=== PATIENT | male | born 1935 | race Caucasian/White ===

== ENCOUNTER 2021-01-06 06:51 | Inpatient (IN) | payer MEDICARE, BC ==
[2021-01-06] MEDS ORDERED: SODIUM CHLORIDE 0.9% 500 ML 500 ML IV ONE (07:15)
--- NOTE | 2021-01-06 07:42 | ED ---
General Adult HPI - General Chief complaint: Altered Mental Status Stated complaint: altered Time Seen by Provider: 01/06/21 06:59 Source: patient, RN notes reviewed, old records reviewed Mode of arrival: ambulatory Limitations: no limitations - History of Present Illness Initial comments: 85-year-old male presenting for evaluation of confusion, hallucination. Patient had some moderate confusion yesterday and developed hallucinations overnight. He called 911 and was seeing things that were not there. He was brought in with his daughter this morning. His had episodes similar to this in the past but not quite as severe. He is recently treated for possible infected kidney stone and is currently on Keflex 500 mg 3 times daily. There's been no reported fever. Appetite has been maintained. No vomiting. No focal numbness or weakness. No headache. - Related Data Home Medications Medication Instructions Recorded Confirmed Aspirin 81 mg PO HS 01/06/21 01/06/21 Cephalexin [Keflex] 500 mg PO Q8HR 01/06/21 01/06/21 Docusate [Colace] 100 mg PO BID 01/06/21 01/06/21 Metoprolol Tartrate 25 mg PO HS 01/06/21 01/06/21 Multivitamins, Thera [Multivitamin 1 tab PO DAILY 01/06/21 01/06/21 (formulary)] Oxybutynin ER [Ditropan Xl] 10 mg PO HS 01/06/21 01/06/21 Pantoprazole Sodium 40 mg PO DAILY 01/06/21 01/06/21 Tamsulosin HCl [Flomax] 0.4 mg PO HS 01/06/21 01/06/21 amLODIPine [Norvasc] 5 mg PO DAILY 01/06/21 01/06/21 Allergies Allergy/AdvReac Type Severity Reaction Status Date / Time No Known Allergies Allergy Verified 01/06/21 08:35 Review of Systems ROS Statement: Those systems with pertinent positive or pertinent negative responses have been documented in the HPI. ROS Other: All systems not noted in ROS Statement are negative. Past Medical History Past Medical History: Hyperlipidemia, Hypertension, Myocardial Infarction ([place]), Renal Disease History of Any Multi-Drug Resistant Organisms: None Reported Past Surgical History: Heart Catheterization With Stent Past Psychological History: No Psychological Hx Reported Smoking Status: Never smoker Past Alcohol Use History: None Reported Past Drug Use History: None Reported General Exam Limitations: no limitations General appearance: alert, in no apparent distress Head exam: Present: atraumatic, normocephalic Eye exam: Present: normal appearance, PERRL ENT exam: Present: mucous membranes dry Neck exam: Present: normal inspection. Absent: tenderness, meningismus Respiratory exam: Present: rales. Absent: respiratory distress, wheezes Cardiovascular Exam: Present: regular rate, normal rhythm GI/Abdominal exam: Present: soft. Absent: distended, tenderness Extremities exam: Present: normal inspection, normal capillary refill. Absent: pedal edema Neurological exam: Present: alert, CN II-XII intact. Absent: motor sensory deficit Psychiatric exam: Present: normal affect, normal mood Skin exam: Present: warm, dry, intact. Absent: cyanosis, diaphoretic Course Vital Signs 01/06/21 01/06/21 06:54 08:25 Temperature 97.9 F Pulse Rate 93 88 Respiratory 18 18 Rate Blood Pressure 162/84 156/90 O2 Sat by Pulse 94 L 98 Oximetry EKG Findings - EKG Comments: EKG Findings:: Sinus rhythm with PVC LVH no ST segment elevation rate of 81, OR interval 164, QRS duration 88, QTC 418 Medical Decision Making - Medical Decision Making 85-year-old male presenting with confusion, hallucination. He has a nonfocal neurologic exam, stable vitals. He was recently diagnosed with kidney stone he had been started on Keflex approximately one week ago. Patient is actively hallucinating. He's evaluated for these changes he has no pain. No fever. Chest x-ray showing concern for either fluid overload or Covid pneumonia. His covert testing is negative he is not hypoxic. CT brain is ordered which is negative for acute hemorrhage or any acute findings. I did repeat imaging of his abdomen pelvis which does show an obstructing 5.4 mm stone in the proximal left ureter with hydronephrosis. He has some blood in his urine as well as blood cell counts, no bacteria present currently. Urine culture is obtained. Blood cultures are obtained. He started on IV fluids and IV antibiotics. I did discuss case with Dr. Pelayo, will evaluate this patient in consultation. He will be kept nothing by mouth. He will be admitted to Dr. Villalba who is aware of the patient. - Lab Data Result diagrams: 01/06/21 07:33 01/06/21 07:33 Lab Results 01/06/21 01/06/2101/06/21 Range/Units 07:24 07:33 07:33 WBC 7.7 (3.8-10.6) k/uL RBC 4.20 L (4.30-5.90) m/uL Hgb 12.8 L (13.0-17.5) gm/dL Hct 38.5 L (39.0-53.0) % MCV 91.7 (80.0-100.0) fL MCH 30.5 (25.0-35.0) pg MCHC 33.3 (31.0-37.0) g/dL RDW 13.1 (11.5-15.5) % Plt Count 211 (150-450) k/uL MPV 7.4 Neutrophils % 74 % Lymphocytes % 16 % Monocytes % 7 % Eosinophils % 0 % Basophils % 0 % Neutrophils # 5.7 (1.3-7.7) k/uL Lymphocytes # 1.3 (1.0-4.8) k/uL Monocytes # 0.5 (0-1.0) k/uL Eosinophils # 0.0 (0-0.7) k/uL Basophils # 0.0 (0-0.2) k/uL PT 10.6 (9.0-12.0) sec INR 1.0 (<1.2) APTT 22.1 (22.0-30.0) sec Sodium (137-145) mmol/L Potassium (3.5-5.1) mmol/L Chloride (98-107) mmol/L Carbon Dioxide (22-30) mmol/L Anion Gap mmol/L BUN (9-20) mg/dL Creatinine (0.66-1.25) mg/dL Est GFR (CKD-EPI)AfAm (>60 ml/min/1.73 sqM) Est GFR (CKD-EPI)NonAf (>60 ml/min/1.73 sqM) Glucose (74-99) mg/dL Plasma Lactic Acid [place] (0.7-2.0) mmol/L Calcium (8.4-10.2) mg/dL Magnesium (1.6-2.3) mg/dL Total Bilirubin (0.2-1.3) mg/dL AST (17-59) U/L ALT (4-49) U/L Alkaline Phosphatase (38-126) U/L Total Protein (6.3-8.2) g/dL Albumin (3.5-5.0) g/dL Urine Color Yellow Urine Appearance Clear (Clear) Urine pH 5.5 (5.0-8.0) Ur Specific [place] 1.012 (1.001-1.035) Urine Protein Negative (Negative) Urine Glucose (UA) Negative (Negative) Urine Ketones Negative (Negative) Urine Blood Large H (Negative) Urine Nitrite Negative (Negative) Urine Bilirubin Negative (Negative) Urine Urobilinogen <2.0 (<2.0) mg/dL Ur Leukocyte Esterase Small H (Negative) Urine RBC 43 H (0-5) /hpf Urine WBC 11 H (0-5) /hpf Urine Mucus Rare H (None) /hpf Coronavirus (PCR) (Not Detectd) 01/06/21 01/06/21 01/06/21 Range/Units 07:33 07:33 08:28 WBC (3.8-10.6) k/uL RBC (4.30-5.90) m/uL Hgb (13.0-17.5) gm/dL Hct (39.0-53.0) % MCV (80.0-100.0) fL MCH (25.0-35.0) pg MCHC (31.0-37.0) g/dL RDW (11.5-15.5) % Plt Count (150-450) k/uL MPV Neutrophils % % Lymphocytes % % Monocytes % % Eosinophils % % Basophils % % Neutrophils # (1.3-7.7) k/uL Lymphocytes # (1.0-4.8) k/uL Monocytes # (0-1.0) k/uL Eosinophils # (0-0.7) k/uL Basophils # (0-0.2) k/uL PT (9.0-12.0) sec INR (<1.2) APTT (22.0-30.0) sec Sodium 137 (137-145) mmol/L Potassium 4.0 (3.5-5.1) mmol/L Chloride 104 (98-107) mmol/L Carbon Dioxide 23 (22-30) mmol/L Anion Gap 10 mmol/L BUN 21 H (9-20) mg/dL Creatinine 1.33 H (0.66-1.25) mg/dL Est GFR (CKD-EPI)AfAm 56 (>60 ml/min/1.73 sqM) Est GFR (CKD-EPI)NonAf 48 (>60 ml/min/1.73 sqM) Glucose 107 H (74-99) mg/dL Plasma Lactic Acid [place] 0.9 (0.7-2.0) mmol/L Calcium 10.1 (8.4-10.2) mg/dL Magnesium 1.4 L (1.6-2.3) mg/dL Total Bilirubin 0.6 (0.2-1.3) mg/dL AST 36 (17-59) U/L ALT 23 (4-49) U/L Alkaline Phosphatase 57 (38-126) U/L Total Protein 7.0 (6.3-8.2) g/dL Albumin 4.0 (3.5-5.0) g/dL Urine Color Urine Appearance (Clear) Urine pH (5.0-8.0) Ur Specific [place] (1.001-1.035) Urine Protein (Negative) Urine Glucose (UA) (Negative) Urine Ketones (Negative) Urine Blood (Negative) Urine Nitrite (Negative) Urine Bilirubin (Negative) Urine Urobilinogen (<2.0) mg/dL Ur Leukocyte Esterase (Negative) Urine RBC (0-5) /hpf Urine WBC (0-5) /hpf Urine Mucus (None) /hpf Coronavirus (PCR) Not Detected (Not Detectd) Disposition Clinical Impression: Delirium due to general medical condition, Metabolic encephalopathy, Hydronephrosis with renal and ureteral calculus obstruction Disposition: ADMITTED IP TO THIS [facility] Condition: Stable Is patient prescribed a controlled substance at d/c from ED?: No Referrals: Jimmy Lu DO [Primary Care Provider] - 1-2 days Decision to Admit Reason: Admit from EC Decision Date: 01/06/21 Decision Time: 10:20
[2021-01-06 07:52] LABS: Basophils % (A) 0 %; Eosinophils % (A) 0 %; HCT 38.5 % (39.0-53.0); HGB 12.8 gm/dL (13.0-17.5); Lymphocytes # (A) 1.3 k/uL (1.0-4.8); Lymphocytes % (A) 16 %; MCH 30.5 pg (25.0-35.0); MCHC 33.3 g/dL (31.0-37.0); MCV 91.7 fL (80.0-100.0); Mean Platelet Volume 7.4; Monocytes # (A) 0.5 k/uL (0-1.0); Monocytes % (A) 7 %; Neutrophils # (A) 5.7 k/uL (1.3-7.7); Neutrophils % (A) 74 %; Platelet Count 211 k/uL (150-450); RDW 13.1 % (11.5-15.5); WBC 7.7 k/uL (3.8-10.6)
--- NOTE | 2021-01-06 08:05 | XR ---
EXAMINATION TYPE: XR chest 2V DATE OF EXAM: 01/06/2021 COMPARISON: 05/25/2013 HISTORY: 85-year-old male confusion, altered mental status TECHNIQUE: AP and lateral views FINDINGS: The heart is borderline enlarged. Mild interstitial densities. Suspect a couple calcified granulomas in the left upper lobe. Narrowing of the subacromial space, right greater than left suggests underlyi ng full-thickness rotator cuff tears. No pleural effusion. IMPRESSION: Mild patchy interstitial changes. Correlate to exclude mild pulmonary vascular congestion versus subt le underlying infiltrates such as with COVID pneumonia.
[2021-01-06 08:13] LABS: Appearance,Urine Clear (Clear); Bilirubin,Urine Negative (Negative); Blood,Urine Large (Negative); Color,Urine Yellow; Glucose,Urine (UA) Negative (Negative); Ketones,Urine Negative (Negative); Leukocyte Esterase,Urine Small (Negative); Mucus,Urine Rare /hpf; Nitrite,Urine Negative (Negative); PH, Urine 5.5 (5.0-8.0); Protein,Urine Negative (Negative); RBC,Urine 43 /hpf (0-5); Specific Gravity,Urine 1.012 (1.001-1.035); Urobilinogen,Urine <2.0 mg/dL (<2.0); WBC,Urine 11 /hpf (0-5)
[2021-01-06 08:36] LABS: Partial Thromboplastin Time 22.1 sec (22.0-30.0); Prothrombin Time 10.6 sec (9.0-12.0)
[2021-01-06 08:41] LABS: Calcium 10.1 mg/dL (8.4-10.2); Magnesium 1.4 mg/dL (1.6-2.3); Total Bilirubin 0.6 mg/dL (0.2-1.3)
--- NOTE | 2021-01-06 09:12 | CT ---
EXAMINATION TYPE: CT brain wo con DATE OF EXAM: 01/06/2021 COMPARISON: 12/02/2012 HISTORY: AMS CT DLP: 1056.[address] of the brain was performed. The ventricles, basal cisterns and sulci overlying the cerebral convexities demonstrate moderate enla rgement. There is no evidence for intracranial hemorrhage or sulcal effacement. There is decreased attenuation about the periventricular white matter and deep white matter of both c erebral hemispheres, compatible with chronic small vessel ischemia. Differential diagnosis does inclu de demyelination. No mass effects are seen.No midline shift. Osseous calvarium is intact. If symptoms persist consider MRI. IMPRESSION: 1. Age related atrophic and chronic small vessel ischemic change without acute intracranial process s een at this time.
--- NOTE | 2021-01-06 09:16 | CT ---
EXAMINATION TYPE: CT abdomen pelvis wo con DATE OF EXAM: 01/06/2021 COMPARISON: 12/03/2012 HISTORY: Renal stones CT DLP: 497.3 mGycm Examination of the solid and hollow viscera is limited given the lack of contrast. FINDINGS: LUNG BASES: No evidence for nodule. No evidence for infiltrate. LIVER/GB: The gallbladder surgically absent. Scattered hepatic calcifications seen. Hypoattenuating l esion left hepatic lobe measuring 1.9 cm. PANCREAS: No pancreatic mass identified. No inflammatory process seen. SPLEEN: No evidence for splenomegaly. No intrasplenic lesions seen. Splenic granulomas. ADRENALS: No adrenal nodules identified. No evidence for thickening. KIDNEYS: Moderate left-sided hydronephrosis secondary to a proximal left ureteral calculus measuring 5.4 mm. No additional calculi seen. Right kidney is unremarkable. There are calculi noted layering de pendently within the urinary bladder measuring up to 1.3 cm. BOWEL: Appendix has a normal appearance. No evidence of bowel obstruction. No inflammatory process. Lymph nodes: No evidence for adenopathy greater than 1 cm. Abdominal aorta: Atheromatous changes seen. No evidence for aneurysm. Genital organs: Multiple prostate calcifications noted as well. Other: No significant abnormality. IMPRESSION: Moderate left-sided hydronephrosis secondary to a proximal left ureteral calculus measuring 5.4 mm.
[2021-01-06] MEDS ORDERED: cefTRIAXone IN SWFI 1,000 MG/10 ML SYRINGE IVP STA (09:25)
[2021-01-06] MEDS ORDERED: NALOXONE 0.4 MG/ML 1 ML VIAL IV PRN (10:16)
--- NOTE | 2021-01-06 10:37 | P.HPIM ---
History of Present Illness This is a pleasant 85 years old male with past medical history of coronary artery disease, hypertension and hyperlipidemia presents with altered mental status He is a patient of Dr. Jimmy reddts his urologist is Dr. Ayala.. Patient was recently diagnosed with kidney stones and he was started on antibiotic Keflex however lately he's been confused and hallucinating I want to see the patient in the emergency room, Patient is fully awake and oriented and he has good attention span he knows he is in the hospital, [facility] he knew the date with the month and year. He couldn't remember the name of the president. However as per daughter at bedside he's been feeling advancing his shoes and he sees appointment who is not there. He denies any chest pain or dyspnea or coughing. No headache or weakness or n umbness. 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 CBC is unremarkable, INR is normal 1.0. Creatinine elevated at 1.3 which is unknown baseline. Liver enzymes not elevated. Urinalysis showing hematuria with small leukocyte esterase. Coronavirus not detected. CT of the abdomen and pelvis: Moderate left-sided hydronephrosis secondary to proximal left ureteral calculus measuring 5.4 mm Of the brain: No acute process. Cerebral atrophy Chest x-ray: Mild patchy interstitial changes. Correlate to exclude mild pulmonary vascular congestion versus subtle underlying infiltrate such as, pneumonia. Review of Systems CONSTITUTIONAL: No fever, no malaise, no fatigue. HEENT: No recent visual problems or hearing problems. Denied any sore throat. CARDIOVASCULAR: No orthopnea, PND, no palpitations, no syncope. PULMONARY: No shortness of breath, no cough, no hemoptysis. GASTROINTESTINAL: No diarrhea, no nausea, no vomiting, no abdominal pain. Normoactive bowel sounds. NEUROLOGICAL: No headaches, no weakness, no numbness. HEMATOLOGICAL: Denies any bleeding or petechiae. GENITOURINARY: Denies any burning micturition, frequency, or urgency. MUSCULOSKELETAL/RHEUMATOLOGICAL: Denies any joint pain, swelling, or any muscle pain. ENDOCRINE: Denies any polyuria or polydipsia. Past Medical History Past Medical History: Hyperlipidemia, Hypertension, Myocardial Infarction ([place]), Renal Disease History of Any Multi-Drug Resistant Organisms: None Reported Past Surgical History: Heart Catheterization With Stent Past Psychological History: No Psychological Hx Reported Smoking Status: Never smoker Past Alcohol Use History: None Reported Past Drug Use History: None Reported Medications and Allergies Home Medications Medication Instructions Recorded Confirmed Type Aspirin 81 mg PO HS 01/06/21 01/06/21 History Cephalexin [Keflex] 500 mg PO Q8HR 01/06/21 01/06/21 History Docusate [Colace] 100 mg PO BID 01/06/21 01/06/21 History Metoprolol Tartrate 25 mg PO HS 01/06/21 01/06/21 History Multivitamins, Thera [Multivitamin 1 tab PO DAILY 01/06/21 01/06/21 History (formulary)] Oxybutynin ER [Ditropan Xl] 10 mg PO HS 01/06/21 01/06/21 History Pantoprazole Sodium 40 mg PO DAILY 01/06/21 01/06/21 History Tamsulosin HCl [Flomax] 0.4 mg PO HS 01/06/21 01/06/21 History amLODIPine [Norvasc] 5 mg PO DAILY 01/06/21 01/06/21 History Allergies Allergy/AdvReac Type Severity Reaction Status Date / Time No Known Allergies Allergy Verified 01/06/21 08:35 Physical Exam Vitals: Vital Signs Temp Pulse Resp BP Pulse Ox 01/06/21 08:25 88 18 156/90 98 01/06/21 06:54 97.9 F 93 18 162/84 94 L Intake and Output 01/05/21 01/06/21 01/06/21 22:59 06:59 14:59 Other: Weight 67.132 kg GENERAL: The patient is alert and oriented x3, not in any acute distress. Well developed, well nourished. HEENT: Pupils are round and equally reacting to light. EOMI. No scleral icterus. No conjunctival pallor. Normocephalic, atraumatic. No pharyngeal erythema. No thyromegaly. CARDIOVASCULAR: S1 and S2 present. No murmurs, rubs, or gallops. PULMONARY: Chest is clear to auscultation, no wheezing or crackles. ABDOMEN: Soft, nontender, nondistended, normoactive bowel sounds. No palpable organomegaly. MUSCULOSKELETAL: No joint swelling or deformity. EXTREMITIES: No cyanosis, clubbing, or pedal edema. NEUROLOGICAL: Gross neurological examination did not reveal any focal deficits. SKIN: No rashes. No petechiae Results CBC & Chem 7: 01/06/21 07:33 01/06/21 07:33 Labs: Abnormal Lab Results - Last 24 Hours (Table) 01/06/21 01/06/21 01/06/21 Range/Units 07:24 07:33 07:33 RBC 4.20 L (4.30-5.90) m/uL Hgb 12.8 L (13.0-17.5) gm/dL Hct 38.5 L (39.0-53.0) % BUN 21 H (9-20) mg/dL Creatinine 1.33 H (0.66-1.25) mg/dL Glucose 107 H (74-99) mg/dL Magnesium 1.4 L (1.6-2.3) mg/dL Urine Blood Large H (Negative) Ur Leukocyte Esterase Small H (Negative) Urine RBC 43 H (0-5) /hpf Urine WBC 11 H (0-5) /hpf Urine Mucus Rare H (None) /hpf Assessment and Plan Assessment: Acute kidney injury secondary to obstructive uropathy Left-sided hydronephrosis secondary to obstructive renal calculus5.4 mm Hematuria secondary to above Metabolic encephalopathy Hypertension Hyperlipidemia Coronary artery disease status post stent placement Plan: This is a pleasant 85 years old male who presents with AMS and AK I and left renal calculus Keep the patient nothing by mouth for possible ureteral stone removal and stent placement by urologist There is no evidence of infection, no fever or leukocytosis Continue with gentle hydration Check procalcitonin Continue with the neuro check Labs and medication were reviewed.. Continue same treatment. Continue with symptomatic treatment. Resume home medication. Monitor lytes and vitals. DVT and GI prophylaxis. Further recommendations depends on the clinical course of the patient DVT prophylaxis: Subcutaneous heparin GI Prophylaxis: Ppi PT/OT: Pending Prognosis is guarded
[2021-01-06] MEDS: HEPARIN SODIUM,PORCINE/PF 5,000 UNIT/0.5 ML SYRINGE SQ SCH ×3 (11:54→22:17)
[2021-01-06] MEDS: SODIUM CHLORIDE 0.9% 1,000 ML IV SCH (11:54)
[2021-01-06] MEDS ORDERED: LACTATED RINGERS 1,000 ML IV ONE (15:43)
--- NOTE | 2021-01-06 16:02 | P.GSCN ---
History of Present Illness Consult date: 01/06/21 Reason for Consult: Left ureteral calculus Requesting physician: Jermaine E Sheet History of present illness: The patient is an 85-year-old white male well known to Dr. Pitts. He was diagnosed with prostate cancer in 2010. He has been managed with watchful waiting. His most recent PSA level was 4.0 in July 2020. He now presents with mental status changes. He was recently diagnosed with kidney stones, and presumably a UTI as he is being treated with Keflex. However, he has been noted to have altered mental status and hallucinations. He does report abdominal pain which is predominantly left-sided. Review of Systems - Constitutional Denies chills, Denies fever - Gastrointestinal Reports abdominal pain, Denies nausea, Denies vomiting - Genitourinary Reports flank pain, Denies dysuria Past Medical History Past Medical History: Hyperlipidemia, Hypertension, Myocardial Infarction ([place]), Renal Disease History of Any Multi-Drug Resistant Organisms: None Reported Past Surgical History: Heart Catheterization With Stent Past Psychological History: No Psychological Hx Reported Smoking Status: Never smoker Past Alcohol Use History: None Reported Past Drug Use History: None Reported Medications and Allergies Home Medications Medication Instructions Recorded Confirmed Type Cephalexin [Keflex] 500 mg PO Q8HR 01/06/21 01/06/21 History Clopidogrel Bisulfate [Plavix] 75 mg PO DAILY 01/06/21 01/06/21 History Docusate [Colace] 100 mg PO BID 01/06/21 01/06/21 History Metoprolol Tartrate 25 mg PO HS 01/06/21 01/06/21 History Multivitamins, Thera [Multivitamin 1 tab PO DAILY 01/06/21 01/06/21 History (formulary)] Oxybutynin ER [Ditropan Xl] 10 mg PO HS 01/06/21 01/06/21 History Pantoprazole Sodium 40 mg PO DAILY 01/06/21 01/06/21 History Tamsulosin HCl [Flomax] 0.4 mg PO HS 01/06/21 01/06/21 History amLODIPine [Norvasc] 5 mg PO DAILY 01/06/21 01/06/21 History Allergies Allergy/AdvReac Type Severity Reaction Status Date / Time No Known Allergies Allergy Verified 01/06/21 15:11 Surgical - Exam Vital Signs Temp Pulse Resp BP Pulse Ox 97.9 F 93 18 162/84 94 L 01/06/21 06:54 01/06/21 06:54 01/06/21 06:54 01/06/21 06:54 01/06/21 06:54 - General well developed, well nourished, no distress - Respiratory normal respiratory effort - Abdomen Abdomen: soft, non tender, no guarding, no rigid, no rebound - Genitourinary normal penis with no external lesions, testicles non-tender Results - Labs 01/06/21 07:33 01/06/21 07:33 Abnormal Lab Results - Last 24 Hours (Table) 01/06/21 01/06/21 01/06/21 Range/Units 07:24 07:33 07:33 RBC 4.20 L (4.30-5.90) m/uL Hgb 12.8 L (13.0-17.5) gm/dL Hct 38.5 L (39.0-53.0) % BUN 21 H (9-20) mg/dL Creatinine 1.33 H (0.66-1.25) mg/dL Glucose 107 H (74-99) mg/dL Magnesium 1.4 L (1.6-2.3) mg/dL Urine Blood Large H (Negative) Ur Leukocyte Esterase Small H (Negative) Urine RBC 43 H (0-5) /hpf Urine WBC 11 H (0-5) /hpf Urine Mucus Rare H (None) /hpf Microbiology - Last 24 Hours (Table) 01/06/21 07:24 Urine Culture - Preliminary Urine,Voided Diabetes panel 01/06/21 Range/Units 07:33 Sodium 137 (137-145) mmol/L Potassium 4.0 (3.5-5.1) mmol/L Chloride 104 (98-107) mmol/L Carbon Dioxide 23 (22-30) mmol/L BUN 21 H (9-20) mg/dL Creatinine 1.33 H (0.66-1.25) mg/dL Glucose 107 H (74-99) mg/dL Calcium 10.1 (8.4-10.2) mg/dL AST 36 (17-59) U/L ALT 23 (4-49) U/L Alkaline Phosphatase 57 (38-126) U/L Total Protein 7.0 (6.3-8.2) g/dL Albumin 4.0 (3.5-5.0) g/dL Calcium panel 01/06/21 Range/Units 07:33 Calcium 10.1 (8.4-10.2) mg/dL Albumin 4.0 (3.5-5.0) g/dL Pituitary panel 01/06/21 Range/Units 07:33 Sodium 137 (137-145) mmol/L Potassium 4.0 (3.5-5.1) mmol/L Chloride 104 (98-107) mmol/L Carbon Dioxide 23 (22-30) mmol/L BUN 21 H (9-20) mg/dL Creatinine 1.33 H (0.66-1.25) mg/dL Glucose 107 H (74-99) mg/dL Calcium 10.1 (8.4-10.2) mg/dL Adrenal panel 01/06/21 Range/Units 07:33 Sodium 137 (137-145) mmol/L Potassium 4.0 (3.5-5.1) mmol/L Chloride 104 (98-107) mmol/L Carbon Dioxide 23 (22-30) mmol/L BUN 21 H (9-20) mg/dL Creatinine 1.33 H (0.66-1.25) mg/dL Glucose 107 H (74-99) mg/dL Calcium 10.1 (8.4-10.2) mg/dL Total Bilirubin 0.6 (0.2-1.3) mg/dL AST 36 (17-59) U/L ALT 23 (4-49) U/L Alkaline Phosphatase 57 (38-126) U/L Total Protein 7.0 (6.3-8.2) g/dL Albumin 4.0 (3.5-5.0) g/dL - Imaging CT scan - abdomen: report reviewed, image reviewed Assessment and Plan (1) Hydronephrosis with renal and ureteral calculus obstruction Current Visit: Yes Status: Acute Code(s): N13.2 - HYDRONEPHROSIS WITH RENAL AND URETERAL CALCULOUS OBSTRUCTION SNOMED Code(s): 334615589 (2) Calculus of ureter Current Visit: Yes Status: Acute Code(s): N20.1 - CALCULUS OF URETER SNO MED Code(s): 89078369 (3) Malignant neoplasm of prostate Current Visit: Yes Status: Acute Code(s): C61 - MALIGNANT NEOPLASM OF PROSTATE SNOMED Code(s): 516967148 Plan: It is unclear whether or not the patient may have a partially treated UTI. A urine culture was sent. He is afebrile and has no leukocytosis. CT scan shows moderate left hydronephrosis due to a 5 mm left proximal ureteral calculus, as well as bladder calculi measuring up to 1.3 cm in size. I have suggested that the patient undergo cystoscopy with left ureteral stent insertion for relief of obstruction. That will relieve the left ureteral obstruction and hopefully improve the patient's overall condition. Once his condition has returned to baseline, he can undergo elective stent removal, at which time ureteroscopy with laser lithotripsy and cystolithotripsy will be performed. The rationale for this approach has been reviewed in detail with the patient and his daughter. They have been made aware of potential risks, which include anesthesia, infection, inability to successfully place the stent, and ureteral injury. Time with Patient: Greater than 30
[2021-01-06] MEDS ORDERED: LIDOCAINE 1% INJ 10MG/ML (20 ML MDV) ONE (16:14)
[2021-01-06] MEDS ORDERED: fentaNYL (PF) 50 MCG/ML 2 ML AMP ONE (16:14)
[2021-01-06] MEDS ORDERED: PROPOFOL 10 MG/ML 20 ML VIAL IV ONE (16:14)
[2021-01-06] MEDS ORDERED: LIDOCAINE URO-JET JELLY 2% 5 ML KIT URETHRAL ONE (16:34)
--- NOTE | 2021-01-06 17:07 | P.OP ---
Date of Procedure: 01/06/21 Preoperative Diagnosis: Left ureteral calculus Postoperative Diagnosis: Same Procedure(s) Performed: Cystoscopy, left ureteral stent insertion Anesthesia: MAC Surgeon: Naeem Pelayo Estimated Blood Loss (ml): 0 IV fluids (ml): 100 Pathology: none sent Condition: stable Disposition: PACU Indications for Procedure: The patient is an 85-year-old white male well known to Dr. Pitts. He was diagnosed with prostate cancer in 2010. He has been managed with watchful waiting. His most recent PSA level was 4.0 in July 2020. He now presents with mental status changes. He was recently diagnosed with kidney stones, and presumably a UTI as he is being treated with Keflex. However, he has been noted to have altered mental status and hallucinations. He does report abdominal pain which is predominantly left-sided. CT scan shows moderate left hydronephrosis due to a 5 mm left proximal ureteral calculus. Operative Findings: 3 bladder calculi. Radio-opaque left proximal ureteral calculus. Successful left ureteral stent insertion. Description of Procedure: The patient was taken to the operating room and placed in the dorsolithotomy position, with legs supported in Chris stirrups. The external genitalia was prepped and draped sterilely. The 30 lens was used to introduce the 22-Ethiopian Stortz cystoscopic sheath through the urethra and into the bladder under direct vision. The prostatic urethra showed evidence of mild lateral lobe enlargement. The bladder was examined in its entirety. Both ureteral orifices were of normal anatomic location and configuration. No tumors were seen. 3 bladder calculi were seen measuring up to 1.5 cm in size. An angle-tip 0.035 inch Glidewire was passed through the cystoscope. The left ureteral orifice was cannulated, and the Glidewire was slowly advanced beyond the calculus and up to the renal pelvis. A 24 cm, 6-Ethiopian double-J ureteral stent was placed over the wire. Proper stent positioning was verified fluoroscopically and endoscopic ally. There was no evidence of a "hydronephrotic weir". The bladder was emptied and the cystoscope removed. The patient tolerated the procedure well was taken to the recovery room in stable condition.
[2021-01-06] MEDS ORDERED: METOPROLOL TARTRATE 25 MG TAB PO SCH (21:00)
[2021-01-06] MEDS: ASPIRIN 81 MG PO SCH (22:17)
[2021-01-06] MEDS: DOCUSATE 100 MG CAP PO SCH (22:17)
[2021-01-06] MEDS: OXYBUTYNIN 10 MG TAB.ER.24 PO SCH (22:17)
[2021-01-06] MEDS: TAMSULOSIN 0.4 MG CAP.ER.24H PO SCH (22:17)
[2021-01-07] MEDS: SODIUM CHLORIDE 0.9% 1,000 ML IV SCH (00:06)
[2021-01-07] MEDS: PANTOPRAZOLE SODIUM 40 MG GRANULE PKT PO SCH (08:24)
[2021-01-07] MEDS: HEPARIN SODIUM,PORCINE/PF 5,000 UNIT/0.5 ML SYRINGE SQ SCH ×2 (08:24→22:11)
[2021-01-07] MEDS: amLODIPine 5 MG TAB PO SCH (08:24)
[2021-01-07] MEDS: DOCUSATE 100 MG CAP PO SCH ×2 (08:24→22:11)
[2021-01-07 09:24] LABS: African American GFR (CKD) 75 (>60 ml/min/1.73 sqM); Anion Gap 8 mmol/L; Blood Urea Nitrogen 16 mg/dL (9-20); Calcium 9.7 mg/dL (8.4-10.2); Carbon Dioxide 21 mmol/L (22-30); Chloride 108 mmol/L (98-107); Glucose 92 mg/dL (74-99); Non-African American GFR(CKD) 65 (>60 ml/min/1.73 sqM); Potassium 4.1 mmol/L (3.5-5.1); Sodium 137 mmol/L (137-145)
--- NOTE | 2021-01-07 09:46 | FL ---
EXAMINATION TYPE: FL guidance operating room DATE OF EXAM: 01/06/2021 CLINICAL HISTORY: Left-sided kidney stones TECHNIQUE: Fluoroscopy. COMPARISON: CT abdomen and pelvis earlier today. FINDINGS: Fluoroscopic guidance was provided during left ureter stent insertion procedure performed by Dr. Pelayo. A total of 32 seconds of fluoroscopic time was utilized during the procedure and 1 sp ot images was acquired. Single intraoperative image obtained shows partial visualization of proximal double-J left ureter stent. IMPRESSION: As Above.
[2021-01-07] MEDS ORDERED: MELATONIN 3 MG TABLET PO PRN (10:10)
[2021-01-07] MEDS ORDERED: QUEtiapine 25 MG TAB PO PRN (10:59)
--- NOTE | 2021-01-07 12:09 | P.PN ---
Progress Note - Text Progress Note Date: 01/07/21 The patient remains confused. He is afebrile with stable vital signs. He is incontinent of urine, and for this reason a condom catheter is being used. The urine is clear. His renal function is improved. He is urologically stable and will not require any further urologic intervention during this hospitalization. Arrangements will be made for him to undergo elective cystoscopy with cystolithotripsy, left ureteroscopy with laser lithotripsy in several weeks.
[2021-01-07] MEDS: LORazepam 2 MG/ML INJ IV PRN ×2 (12:23→22:11)
--- NOTE | 2021-01-07 18:54 | P.PN ---
Progress Note - Text Progress Note Date: 01/07/21 Hospital course Per sheet: This is a pleasant 85 years old male with past medical history of coronary artery disease, hypertension and hyperlipidemia presents with altered mental status He is a patient of Dr. Jimmy Turcios , his urologist is Dr. Ayala.. Patient was recently diagnosed with kidney stones and he was started on antibiotic Keflex however lately he's been confused and hallucinating I want to see the patient in the emergency room, Patient is fully awake and oriented and he has good attention span he knows he is in the hospital, [facility] he knew the date with the month and year. He couldn't remember the name of the president. However as per daughter at bedside he's been feeling advancing his shoes and he sees appointment who is not there. He denies any chest pain or dyspnea or coughing. No headache or weakness or numbness. 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 With left-sided hydronephrosis secondary to obstructive renal calculi 5.4 mm. Also hematuria and metabolic encephalopathy secondary to the same. On January 06 patient underwent left ureteral stent insertion. January 07: Patient is somewhat delirious. Not eating much. Since grandson and granddaughter visiting. Has a Colon catheter. He did eat some breakfast. Condom catheter was placed. Making good urine output. Review of systems cannot be obtained because of delirium the patient is able tonsil simple questions Active Medications Acetaminophen (Acetaminophen Tab 325 Mg Tab) 650 mg PO Q6HR PRN PRN Reason: Mild Pain or Fever > 100.5 Amlodipine Besylate (Amlodipine 5 Mg Tab) 5 mg PO DAILY [facility] Last Admin: 01/07/21 08:24 Dose: 5 mg Documented by: Aspirin (Aspirin 81 Mg) 81 mg PO HS [facility] Last Admin: 01/06/21 22:17 Dose: 81 mg Documented by: Docusate Sodium (Docusate 100 Mg Cap) 100 mg PO BID [facility] Last Admin: 01/07/21 08:24 Dose: 100 mg Documented by: Heparin Sodium (Porcine) (Heparin Sodium,Porcine/Pf 5,000 Unit/0.5 Ml Syringe) 5,000 unit SQ Q12HR [facility] Last Admin: 01/07/21 08:24 Dose: 5,000 unit Documented by: Ceftriaxone Sodium 2 gm/ (Sodium Chloride) 50 mls @ 100 mls/hr IVPB Q24HR [facility] Last Admin: 01/07/21 08:06 Dose: 100 mls/hr Documented by: Dextrose/Sodium Chloride (Dextrose 5%-1/2ns Iv Soln) 1,000 mls @ 100 mls/hr IV .Q10H [facility] Lorazepam (Lorazepam 2 Mg/Ml Inj) 0.5 mg IV Q12HR PRN PRN Reason: Anxiety Last Admin: 01/07/21 12:23 Dose: 0.5 mg Documented by: Melatonin (Melatonin 3 Mg Tablet) 3 mg PO HS PRN PRN Reason: Insomnia Metoprolol Tartrate (Metoprolol Tartrate 25 Mg Tab) 25 mg PO [facility] Last Admin: 01/06/21 22:17 Dose: 25 mg Documented by: Naloxone HCl (Naloxone 0.4 Mg/Ml 1 Ml Vial) 0.2 mg IV Q2M PRN PRN Reason: Opioid Reversal Oxybutynin Chloride (Oxybutynin 10 Mg Tab.Er.24) 10 mg PO [facility] Last Admin: 01/06/21 22:17 Dose: 10 mg Documented by: Pantoprazole Sodium (Pantoprazole Sodium 40 Mg Granule Pkt) 40 mg PO DAILY [facility] Last Admin: 01/07/21 08:24 Dose: 40 mg Documented by: Quetiapine Fumarate (Quetiapine 25 Mg Tab) 25 mg PO [facility] Tamsulosin HCl (Tamsulosin 0.4 Mg Cap.Er.24h) 0.4 mg PO [facility] Last Admin: 01/06/21 22:17 Dose: 0.4 mg Documented by: On examination: VITAL SIGNS: 98.2, 89, 18, 1 25 x 66, 94% room air GENERAL APPEARANCE: Laying in bed, awake, moving about. HEENT: Normal external appearance of nose and ear. Oral cavity mucous membranes EYES: Pupils equal. Conjunctiva normal. NECK: JVD not raised. Mass not palpable. RESPIRATORY: Respiratory effort normal. Lungs decreased breath sounds. CARDIOVASCULAR: First and second sounds normal. No edema. ABDOMEN: Soft. Liver and spleen not palpable. No tenderness. No mass palpable. Colon catheter PSYCHIATRY: Answering occasional question. Looking about. Moving. NEUROLOGICAL: Moving all 4 limbs. INVESTIGATIONS, reviewed in the clinical context: Sodium 137 potassium 4.1 BUN 16 creatinine 1.04 Admission labs: White count 7.7 hemoglobin 12.8 platelets 211 BUN 21 8 and 1.33 UA positive for mild leukoesterase, WBC Coronavirus [PCR]: Not detected Chest x-ray film: Mild patchy interstitial changes. CT brain: Age-related atrophic changes. CT abdomen pelvis: Moderate left-sided hydronephrosis secondary to proximal left ureteral calculus measuring 5.4 mm. Multiple prostate calcifications Assessment and plan: -Acute moderate left-sided hydronephrosis secondary to proximal left ureteral calculus measuring 5.4 mm. Left ureter stent done on 01/06. -Acute metabolic encephalopathy and delirium secondary to obstructive uropathy and dehydration IV fluids. Add Seroquel 25 mg at night. -Acute kidney injury due to obstructive uropathy and prerenal from decreased oral intake Improving following left ureteral stent and IV fluids. -Hyperlipidemia -BPH: Flomax 0.4 mg daily at bedtime -Essential hypertension: unControlled Norvasc 5 mg daily. Increase metoprolol to 25 mg twice a day -CAD with stent Plavix in 5 mg daily. Metoprolol 25 mg daily at bedtime Norvasc 5 mg daily Add Seroquel 25 mg at night. Add fluids D5.45 at 100 mL an hour. Care was discussed with the patient's grandchildren the bedside. Also discussed with nurse. Increase metoprolol to 25 mg twice a day. Feeding with assistance
[2021-01-07] MEDS ORDERED: QUEtiapine 25 MG TAB PO SCH (21:00)
[2021-01-07] MEDS: DEXTROSE 5%-0.45% NACL 1,000 ML IV SCH ×2 (21:01→22:12)
[2021-01-07] MEDS: OXYBUTYNIN 10 MG TAB.ER.24 PO SCH (22:11)
[2021-01-07] MEDS: ASPIRIN 81 MG PO SCH (22:11)
[2021-01-07] MEDS: TAMSULOSIN 0.4 MG CAP.ER.24H PO SCH (22:12)
[2021-01-07] MEDS: METOPROLOL TARTRATE 25 MG TAB PO SCH (22:12)
[2021-01-08] MEDS: DOCUSATE 100 MG CAP PO SCH ×2 (08:03→22:14)
[2021-01-08] MEDS: HEPARIN SODIUM,PORCINE/PF 5,000 UNIT/0.5 ML SYRINGE SQ SCH ×2 (08:03→22:14)
[2021-01-08] MEDS: amLODIPine 5 MG TAB PO SCH (08:03)
[2021-01-08] MEDS: METOPROLOL TARTRATE 25 MG TAB PO SCH ×2 (08:03→22:14)
[2021-01-08] MEDS: PANTOPRAZOLE SODIUM 40 MG GRANULE PKT PO SCH (08:04)
[2021-01-08 11:12] LABS: African American GFR (CKD) 66 (>60 ml/min/1.73 sqM); Anion Gap 5 mmol/L; Blood Urea Nitrogen 12 mg/dL (9-20); Calcium 9.5 mg/dL (8.4-10.2); Carbon Dioxide 23 mmol/L (22-30); Chloride 110 mmol/L (98-107); Glucose 94 mg/dL (74-99); Non-African American GFR(CKD) 57 (>60 ml/min/1.73 sqM); Potassium 3.3 mmol/L (3.5-5.1); Sodium 138 mmol/L (137-145)
[2021-01-08] MEDS ORDERED: POTASSIUM CHLORIDE ER 20 MEQ TAB.ER PO STA (16:11)
--- NOTE | 2021-01-08 16:13 | P.PN ---
Progress Note - Text Progress Note Date: 01/08/21 Hospital course Per sheet: This is a pleasant 85 years old male with past medical history of coronary artery disease, hypertension and hyperlipidemia presents with altered mental status He is a patient of Dr. Jimmy Turcios , his urologist is Dr. Ayala.. Patient was recently diagnosed with kidney stones and he was started on antibiotic Keflex however lately he's been confused and hallucinating I want to see the patient in the emergency room, Patient is fully awake and oriented and he has good attention span he knows he is in the hospital, [facility] he knew the date with the month and year. He couldn't remember the name of the president. However as per daughter at bedside he's been feeling advancing his shoes and he sees appointment who is not there. He denies any chest pain or dyspnea or coughing. No headache or weakness or numbness. 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 With left-sided hydronephrosis secondary to obstructive renal calculi 5.4 mm. Also hematuria and metabolic encephalopathy secondary to the same. On January 06 patient underwent left ureteral stent insertion. January 07: Patient is somewhat delirious. Not eating much. Since grandson and granddaughter visiting. Has a Colon catheter. He did eat some breakfast. Condom catheter was placed. Making good urine output. January 08: Patient was started on Seroquel yesterday. Slept through lunch. I did recover the patient. Spoke to the nurse. Ativan discontinued. Because of Seroquel cutback to 12.5 Review of systems cannot be obtained because of patient rather sleepy Active Medications Acetaminophen (Acetaminophen Tab 325 Mg Tab) 650 mg PO Q6HR PRN PRN Reason: Mild Pain or Fever > 100.5 Amlodipine Besylate (Amlodipine 5 Mg Tab) 5 mg PO DAILY [facility] Last Admin: 01/08/21 08:03 Dose: 5 mg Documented by: Aspirin (Aspirin 81 Mg) 81 mg PO HS [facility] Last Admin: 01/07/21 22:11 Dose: 81 mg Documented by: Docusate Sodium (Docusate 100 Mg Cap) 100 mg PO BID [facility] Last Admin: 01/08/21 08:03 Dose: 100 mg Documented by: Heparin Sodium (Porcine) (Heparin Sodium,Porcine/Pf 5,000 Unit/0.5 Ml Syringe) 5,000 unit SQ Q12HR [facility] Last Admin: 01/08/21 08:03 Dose: 5,000 unit Documented by: Ceftriaxone Sodium 2 gm/ (Sodium Chloride) 50 mls @ 100 mls/hr IVPB Q24HR [facility] Last Admin: 01/08/21 08:02 Dose: 100 mls/hr Documented by: Dextrose/Sodium Chloride (Dextrose 5%-1/2ns Iv Soln) 1,000 mls @ 100 mls/hr IV .Q10H [facility] Last Admin: 01/07/21 22:12 Dose: 100 mls/hr Documented by: Metoprolol Tartrate (Metoprolol Tartrate 25 Mg Tab) 25 mg PO BID [facility] Last Admin: 01/08/21 08:03 Dose: 25 mg Documented by: Naloxone HCl (Naloxone 0.4 Mg/Ml 1 Ml Vial) 0.2 mg IV Q2M PRN PRN Reason: Opioid Reversal Oxybutynin Chloride (Oxybutynin 10 Mg Tab.Er.24) 10 mg PO [facility] Last Admin: 01/07/21 22:11 Dose: 10 mg Documented by: Pantoprazole Sodium (Pantoprazole Sodium 40 Mg Granule Pkt) 40 mg PO DAILY [facility] Last Admin: 01/08/21 08:04 Dose: 40 mg Documented by: Quetiapine Fumarate (Quetiapine 25 Mg Tab) 12.5 mg PO [facility] Tamsulosin HCl (Tamsulosin 0.4 Mg Cap.Er.24h) 0.4 mg PO [facility] Last Admin: 01/07/21 22:12 Dose: 0.4 mg Documented by: On examination: VITAL SIGNS: 98.2, 65, 16, 1 54 x 81, 93% on room air GENERAL APPEARANCE: Laying in bed, sleepy but arousable HEENT: Normal external appearance of nose and ear. Oral cavity mucous membranes EYES: Pupils equal. Conjunctiva normal. NECK: JVD not raised. Mass not palpable. RESPIRATORY: Respiratory effort normal. Lungs decreased breath sounds. CARDIOVASCULAR: First and second sounds normal. No edema. ABDOMEN: Soft. Liver and spleen not palpable. No tenderness. No mass palpable. Condom catheter PSYCHIATRY: Unable to assess sleepy NEUROLOGICAL: Moving all 4 limbs. INVESTIGATIONS, reviewed in the clinical context: January 08: Sodium 138 potassium 3.3 creatinine 1.15 Sodium 137 potassium 4.1 BUN 16 creatinine 1.04 Admission labs: White count 7.7 hemoglobin 12.8 platelets 211 BUN 21 8 and 1.33 UA positive for mild leukoesterase, WBC Coronavirus [PCR]: Not detected Chest x-ray film: Mild patchy interstitial changes. CT brain: Age-related atrophic changes. CT abdomen pelvis: Moderate left-sided hydronephrosis secondary to proximal left ureteral calculus measuring 5.4 mm. Multiple prostate calcifications Assessment and plan: -Acute moderate left-sided hydronephrosis secondary to proximal left ureteral calculus measuring 5.4 mm. Left ureter stent done on 01/06. -Acute metabolic encephalopathy and delirium secondary to obstructive uropathy and dehydration IV fluids. Cutback Seroquel 12.5 mg at night. DC Ativan -Acute kidney injury due to obstructive uropathy and prerenal from decreased oral intake Improving following left ureteral stent and IV fluids. -Hyperlipidemia -BPH: Flomax 0.4 mg daily at bedtime -Essential hypertension: unControlled Norvasc 5 mg daily. metoprolol to 25 mg twice a day -CAD with stent Plavix in 5 mg daily. Metoprolol 25 mg daily at bedtime Norvasc 5 mg daily Cutback Seroquel 12.5 mg at night. D5.45 at 100 mL an hour. discussed with nurse.. Feeding with assistance
[2021-01-08] MEDS: DEXTROSE 5%-0.45% NACL 1,000 ML IV SCH ×2 (16:35→16:58)
[2021-01-08] MEDS: OXYBUTYNIN 10 MG TAB.ER.24 PO SCH (22:14)
[2021-01-08] MEDS: QUEtiapine 25 MG TAB PO SCH (22:14)
[2021-01-08] MEDS: TAMSULOSIN 0.4 MG CAP.ER.24H PO SCH (22:14)
[2021-01-08] MEDS: ASPIRIN 81 MG PO SCH (22:14)
[2021-01-09] MEDS: DEXTROSE 5%-0.45% NACL 1,000 ML IV SCH ×2 (04:39→19:37)
[2021-01-09] MEDS: DOCUSATE 100 MG CAP PO SCH ×2 (08:29→21:25)
[2021-01-09] MEDS: METOPROLOL TARTRATE 25 MG TAB PO SCH ×2 (08:29→21:26)
[2021-01-09] MEDS: amLODIPine 5 MG TAB PO SCH (08:29)
[2021-01-09] MEDS: HEPARIN SODIUM,PORCINE/PF 5,000 UNIT/0.5 ML SYRINGE SQ SCH ×2 (08:29→21:25)
[2021-01-09] MEDS: PANTOPRAZOLE SODIUM 40 MG GRANULE PKT PO SCH (08:30)
--- NOTE | 2021-01-09 17:02 | P.PN ---
Progress Note - Text Progress Note Date: 01/09/21 Hospital course Per sheet: This is a pleasant 85 years old male with past medical history of coronary artery disease, hypertension and hyperlipidemia presents with altered mental status He is a patient of Dr. Jimmy Turcios , his urologist is Dr. Ayala.. Patient was recently diagnosed with kidney stones and he was started on antibiotic Keflex however lately he's been confused and hallucinating I want to see the patient in the emergency room, Patient is fully awake and oriented and he has good attention span he knows he is in the hospital, [facility] he knew the date with the month and year. He couldn't remember the name of the president. However as per daughter at bedside he's been feeling advancing his shoes and he sees appointment who is not there. He denies any chest pain or dyspnea or coughing. No headache or weakness or numbness. 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 With left-sided hydronephrosis secondary to obstructive renal calculi 5.4 mm. Also hematuria and metabolic encephalopathy secondary to the same. On January 06 patient underwent left ureteral stent insertion. January 07: Patient is somewhat delirious. Not eating much. Since grandson and granddaughter visiting. Has a Colon catheter. He did eat some breakfast. Condom catheter was placed. Making good urine output. January 08: Patient was started on Seroquel yesterday. Slept through lunch. I did recover the patient. Spoke to the nurse. Ativan discontinued. Because of Seroquel cutback to 12.5 January 09: Patient sitting up in a chair. Answering questions appropriately. He thinks he is at [facility]. He knows that he is in [place] on, winter. Patient's grandchildren the bedside. Inform us that the patient has chronic neck pain. Which is bothering him today. Ice pack and heat pack ordered. Spoke to them at length to speak to the mother about patient going to assisted living in the long run. Oral intake about 50-75%. Review of systems cannot be obtained because of patient rather sleepy Active Medications Acetaminophen (Acetaminophen Tab 325 Mg Tab) 650 mg PO Q6HR PRN PRN Reason: Mild Pain or Fever > 100.5 Amlodipine Besylate (Amlodipine 5 Mg Tab) 5 mg PO DAILY [facility] Last Admin: 01/09/21 08:29 Dose: 5 mg Documented by: Aspirin (Aspirin 81 Mg) 81 mg PO [facility] Last Admin: 01/08/21 22:14 Dose: 81 mg Documented by: Docusate Sodium (Docusate 100 Mg Cap) 100 mg PO BID [facility] Last Admin: 01/09/21 08:29 Dose: 100 mg Documented by: Heparin Sodium (Porcine) (Heparin Sodium,Porcine/Pf 5,000 Unit/0.5 Ml Syringe) 5,000 unit SQ Q12HR [facility] Last Admin: 01/09/21 08:29 Dose: 5,000 unit Documented by: Ceftriaxone Sodium 2 gm/ (Sodium Chloride) 50 mls @ 100 mls/hr IVPB Q24HR [facility] Last Admin: 01/09/21 08:30 Dose: 100 mls/hr Documented by: Dextrose/Sodium Chloride (Dextrose 5%-1/2ns Iv Soln) 1,000 mls @ 100 mls/hr IV .Q10H [facility] Last Admin: 01/09/21 04:39 Dose: 100 mls/hr Documented by: Metoprolol Tartrate (Metoprolol Tartrate 25 Mg Tab) 25 mg PO BID [facility] Last Admin: 01/09/21 08:29 Dose: 25 mg Documented by: Naloxone HCl (Naloxone 0.4 Mg/Ml 1 Ml Vial) 0.2 mg IV Q2M PRN PRN Reason: Opioid Reversal Oxybutynin Chloride (Oxybutynin 10 Mg Tab.Er.24) 10 mg PO [facility] Last Admin: 01/08/21 22:14 Dose: 10 mg Documented by: Pantoprazole Sodium (Pantoprazole Sodium 40 Mg Granule Pkt) 40 mg PO DAILY [facility] Last Admin: 01/09/21 08:30 Dose: 40 mg Documented by: Quetiapine Fumarate (Quetiapine 25 Mg Tab) 12.5 mg PO [facility] Last Admin: 01/08/21 22:14 Dose: 12.5 mg Documented by: Tamsulosin HCl (Tamsulosin 0.4 Mg Cap.Er.24h) 0.4 mg PO [facility] Last Admin: 01/08/21 22:14 Dose: 0.4 mg Documented by: On examination: VITAL SIGNS: 98.6, 65, 17, 143 with 70, 95% room air GENERAL APPEARANCE: Sitting up in a chair, awake, conversing HEENT: Normal external appearance of nose and ear. Oral cavity normal EYES: Pupils equal. Conjunctiva normal. NECK: JVD not raised. Mass not palpable. RESPIRATORY: Respiratory effort normal. Lungs decreased breath sounds. CARDIOVASCULAR: First and second sounds normal. No edema. ABDOMEN: Soft. Liver and spleen not palpable. No tenderness. No mass palpable. Condom catheter PSYCHIATRY: Patient knows that he is in [place] on, winter season. NEUROLOGICAL: No facial asymmetry. Moving all 4 limbs.. INVESTIGATIONS, reviewed in the clinical context: January 08: Sodium 138 potassium 3.3 creatinine 1.15 Sodium 137 potassium 4.1 BUN 16 creatinine 1.04 Admission labs: White count 7.7 hemoglobin 12.8 platelets 211 BUN 21 8 and 1.33 UA positive for mild leukoesterase, WBC Coronavirus [PCR]: Not detected Chest x-ray film: Mild patchy interstitial changes. CT brain: Age-related atrophic changes. CT abdomen pelvis: Moderate left-sided hydronephrosis secondary to proximal left ureteral calculus measuring 5.4 mm. Multiple prostate calcifications Assessment and plan: -Acute moderate left-sided hydronephrosis secondary to proximal left ureteral calculus measuring 5.4 mm. Left ureter stent done on 01/06. -Acute metabolic encephalopathy and delirium secondary to obstructive uropathy and dehydration: Improving IV fluids. Seroquel 12.5 mg at night. DC Ativan -Acute kidney injury due to obstructive uropathy and prerenal from decreased oral intake Improving following left ureteral stent and IV fluids. -Hyperlipidemia -BPH: Flomax 0.4 mg daily at bedtime -Essential hypertension: unControlled Norvasc 5 mg daily. metoprolol to 25 mg twice a day -CAD with stent Plavix in 5 mg daily. Metoprolol 25 mg daily at bedtime Norvasc 5 mg daily -Acute medical debility. PTOT on the case. May need an IPD rehab -Disposition: Possible IPD rehab Patient was living by himself prior to coming in. Patient may need assisted living in the long run. Had a lengthy discussion with patient's grandchildren as the bedside. At the nurse. Total time spent about 45 Ms. with over 25 minutes of discussion. PTOT review of patient further
[2021-01-09] MEDS: ACETAMINOPHEN TAB 325 MG TAB PO PRN (18:24)
[2021-01-09] MEDS: TAMSULOSIN 0.4 MG CAP.ER.24H PO SCH (21:25)
[2021-01-09] MEDS: QUEtiapine 25 MG TAB PO SCH (21:26)
[2021-01-09] MEDS: ASPIRIN 81 MG PO SCH (21:26)
[2021-01-09] MEDS: OXYBUTYNIN 10 MG TAB.ER.24 PO SCH (21:26)
[2021-01-10 06:22] LABS: Basophils % (A) 0 %; Eosinophils # (A) 0.2 k/uL (0-0.7); Eosinophils % (A) 2 %; HCT 36.2 % (39.0-53.0); HGB 12.1 gm/dL (13.0-17.5); Lymphocytes % (A) 28 %; MCH 30.4 pg (25.0-35.0); MCHC 33.5 g/dL (31.0-37.0); MCV 90.6 fL (80.0-100.0); Mean Platelet Volume 7.7; Monocytes # (A) 0.5 k/uL (0-1.0); Monocytes % (A) 7 %; Neutrophils # (A) 4.2 k/uL (1.3-7.7); Neutrophils % (A) 60 %; Platelet Count 201 k/uL (150-450); RBC 3.99 m/uL (4.30-5.90); RDW 13.1 % (11.5-15.5)
[2021-01-10 06:31] LABS: African American GFR (CKD) 77 (>60 ml/min/1.73 sqM); Anion Gap 4 mmol/L; Blood Urea Nitrogen 14 mg/dL (9-20); Calcium 9.6 mg/dL (8.4-10.2); Carbon Dioxide 22 mmol/L (22-30); Chloride 107 mmol/L (98-107); Glucose 97 mg/dL (74-99); Non-African American GFR(CKD) 67 (>60 ml/min/1.73 sqM); Potassium 3.9 mmol/L (3.5-5.1); Sodium 133 mmol/L (137-145)
[2021-01-10] MEDS: METOPROLOL TARTRATE 25 MG TAB PO SCH ×2 (08:41→22:23)
[2021-01-10] MEDS: DOCUSATE 100 MG CAP PO SCH ×2 (08:41→22:24)
[2021-01-10] MEDS: amLODIPine 5 MG TAB PO SCH (08:41)
[2021-01-10] MEDS: HEPARIN SODIUM,PORCINE/PF 5,000 UNIT/0.5 ML SYRINGE SQ SCH ×2 (08:42→22:25)
[2021-01-10] MEDS: PANTOPRAZOLE SODIUM 40 MG GRANULE PKT PO SCH (08:43)
--- NOTE | 2021-01-10 22:10 | P.PN ---
Progress Note - Text Progress Note Date: 01/10/21 Hospital course Per sheet: This is a pleasant 85 years old male with past medical history of coronary artery disease, hypertension and hyperlipidemia presents with altered mental status He is a patient of Dr. Jimmy Turcios , his urologist is Dr. Ayala.. Patient was recently diagnosed with kidney stones and he was started on antibiotic Keflex however lately he's been confused and hallucinating I want to see the patient in the emergency room, Patient is fully awake and oriented and he has good attention span he knows he is in the hospital, [facility] he knew the date with the month and year. He couldn't remember the name of the president. However as per daughter at bedside he's been feeling advancing his shoes and he sees appointment who is not there. He denies any chest pain or dyspnea or coughing. No headache or weakness or numbness. 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 With left-sided hydronephrosis secondary to obstructive renal calculi 5.4 mm. Also hematuria and metabolic encephalopathy secondary to the same. On January 06 patient underwent left ureteral stent insertion. January 07: Patient is somewhat delirious. Not eating much. Since grandson and granddaughter visiting. Has a Colon catheter. He did eat some breakfast. Condom catheter was placed. Making good urine output. January 08: Patient was started on Seroquel yesterday. Slept through lunch. I did recover the patient. Spoke to the nurse. Ativan discontinued. Because of Seroquel cutback to 12.5 January 09: Patient sitting up in a chair. Answering questions appropriately. He thinks he is at [facility]. He knows that he is in [place] on, winter. Patient's grandchildren the bedside. Inform us that the patient has chronic neck pain. Which is bothering him today. Ice pack and heat pack ordered. Spoke to them at length to speak to the mother about patient going to assisted living in the long run. Oral intake about 50-75%. January 10: Sitting up in a chair. Feeling much better. Has chronic neck pain. Heating pad ordered. Oral intake fair. Good urine output. Looking to go to possible rehab. Review of systems: Was done for constitutional, cardiovascular, GI, pulmonary. relevant finding as above Active Medications Acetaminophen (Acetaminophen Tab 325 Mg Tab) 650 mg PO Q6HR PRN PRN Reason: Mild Pain or Fever > 100.5 Last Admin: 01/09/21 18:24 Dose: 650 mg Documented by: Amlodipine Besylate (Amlodipine 5 Mg Tab) 5 mg PO DAILY [facility] Last Admin: 01/10/21 08:41 Dose: 5 mg Documented by: Aspirin (Aspirin 81 Mg) 81 mg PO [facility] Last Admin: 01/09/21 21:26 Dose: 81 mg Documented by: Docusate Sodium (Docusate 100 Mg Cap) 100 mg PO BID [facility] Last Admin: 01/10/21 08:41 Dose: 100 mg Documented by: Heparin Sodium (Porcine) (Heparin Sodium,Porcine/Pf 5,000 Unit/0.5 Ml Syringe) 5,000 unit SQ Q12HR [facility] Last Admin: 01/10/21 08:42 Dose: 5,000 unit Documented by: Ceftriaxone Sodium 2 gm/ (Sodium Chloride) 50 mls @ 100 mls/hr IVPB Q24HR [facility] Last Admin: 01/10/21 08:41 Dose: 100 mls/hr Documented by: Metoprolol Tartrate (Metoprolol Tartrate 25 Mg Tab) 25 mg PO BID [facility] Last Admin: 01/10/21 08:41 Dose: 25 mg Documented by: Naloxone HCl (Naloxone 0.4 Mg/Ml 1 Ml Vial) 0.2 mg IV Q2M PRN PRN Reason: Opioid Reversal Oxybutynin Chloride (Oxybutynin 10 Mg Tab.Er.24) 10 mg PO [facility] Last Admin: 01/09/21 21:26 Dose: 10 mg Documented by: Pantoprazole Sodium (Pantoprazole Sodium 40 Mg Granule Pkt) 40 mg PO DAILY [facility] Last Admin: 01/10/21 08:43 Dose: 40 mg Documented by: Quetiapine Fumarate (Quetiapine 25 Mg Tab) 12.5 mg PO [facility] Last Admin: 01/09/21 21:26 Dose: 12.5 mg Documented by: Tamsulosin HCl (Tamsulosin 0.4 Mg Cap.Er.24h) 0.4 mg PO [facility] Last Admin: 01/09/21 21:25 Dose: 0.4 mg Documented by: On examination: VITAL SIGNS: 98.5, 76, 17, 1 29 x 73, 97% room air GENERAL APPEARANCE: Sitting up in a chair, awake, comfortable HEENT: Normal external appearance of nose and ear. Oral cavity normal EYES: Pupils equal. Conjunctiva normal. NECK: JVD not raised. Mass not palpable. RESPIRATORY: Respiratory effort normal. Lungs decreased breath sounds. CARDIOVASCULAR: First and second sounds normal. No edema. ABDOMEN: Soft. Liver and spleen not palpable. No tenderness. No mass palpable. Condom catheter PSYCHIATRY: Answering simple questions appropriately. NEUROLOGICAL: No facial asymmetry. Moving all 4 limbs.. INVESTIGATIONS, reviewed in the clinical context: January 02: White count 17 hemoglobin 12.1 sodium 133 potassium 3.9 creatinine 1.01 January 08: Sodium 138 potassium 3.3 creatinine 1.15 Sodium 137 potassium 4.1 BUN 16 creatinine 1.04 Admission labs: White count 7.7 hemoglobin 12.8 platelets 211 BUN 21 8 and 1.33 UA positive for mild leukoesterase, WBC Coronavirus [PCR]: Not detected Chest x-ray film: Mild patchy interstitial changes. CT brain: Age-related atrophic changes. CT abdomen pelvis: Moderate left-sided hydronephrosis secondary to proximal left ureteral calculus measuring 5.4 mm. Multiple prostate calcifications Assessment and plan: -Acute moderate left-sided hydronephrosis secondary to proximal left ureteral calculus measuring 5.4 mm. Left ureter stent done on 01/06. -Acute metabolic encephalopathy and delirium secondary to obstructive uropathy and dehydration: Improving IV fluids. Seroquel 12.5 mg at night. DC Ativan -Acute kidney injury due to obstructive uropathy and prerenal from decreased oral intake Improving following left ureteral stent and IV fluids. -Hyperlipidemia -BPH: Flomax 0.4 mg daily at bedtime -Essential hypertension: unControlled Norvasc 5 mg daily. metoprolol to 25 mg twice a day -CAD with stent Plavix in 5 mg daily. Metoprolol 25 mg daily at bedtime Norvasc 5 mg daily -Acute medical debility. PTOT on the case. May need an IPD rehab -Disposition: Possible IPD rehab Continue current medication treatment plan. Awaiting placement. Discussed with patient. DC IV ceftriaxone upon discharge.
[2021-01-10] MEDS: TAMSULOSIN 0.4 MG CAP.ER.24H PO SCH (22:23)
[2021-01-10] MEDS: OXYBUTYNIN 10 MG TAB.ER.24 PO SCH (22:23)
[2021-01-10] MEDS: QUEtiapine 25 MG TAB PO SCH (22:24)
[2021-01-10] MEDS: ASPIRIN 81 MG PO SCH (22:24)
[2021-01-10] MEDS: ACETAMINOPHEN TAB 325 MG TAB PO PRN (22:24)
[2021-01-11 04:31] VITALS: TEMP 98.1
[2021-01-11] MEDS: DOCUSATE 100 MG CAP PO SCH (08:03)
[2021-01-11] MEDS: amLODIPine 5 MG TAB PO SCH (08:03)
[2021-01-11] MEDS: METOPROLOL TARTRATE 25 MG TAB PO SCH (08:03)
[2021-01-11] MEDS: HEPARIN SODIUM,PORCINE/PF 5,000 UNIT/0.5 ML SYRINGE SQ SCH (08:04)
[2021-01-11] MEDS: PANTOPRAZOLE SODIUM 40 MG GRANULE PKT PO SCH (08:04)
[2021-01-11 08:06] VITALS: RESP 18
--- NOTE | 2021-01-11 08:19 | P.CONS ---
History of Present Illness - Chief Complaint Medical debility - History of Present Illness I had the opportunity see patient for inpatient rehab consultation with regard to medical debility. Patient admitted to [facility] January 06 with confusion known prostate cancer and left ureteral stent. Seen by Dr. Lemon. Abdominal CT did demonstrate the year renal calculus and prostate cancer. Patient did u ndergo stenting. Head CT demonstrates age-related change for chest x-ray with patchy infiltrates. PT reports supervision for functional mobility including gait 25 feet with roller walker. OT prescribed. Previous functional history as elicited from patient: 85-year-old right-handed white male who is lives in a 1 floor home, with basement, alone. Describes independent with own cooking, laundry, standing shower and gait with standard cane or walker. Daughter does the driving. PCP Dr. Turcios. Review of Systems Review of systems: ENT: Denies sneezes or discharge. Eyes: Denies discharge or photophobia. Cardiac: Denies chest pain or palpitation. Pulmonary: Denies cough or shortness of breath. Gastrointestinal: Denies nausea, emesis, constipation, diarrhea. Genitourinary: Difficulty. Musculoskeletal: Denies muscle or bone aches. Neurologic: Mild confusion and generalized weakness. Endocrine: Denies shakes or sweats. Oncology: Denies cancers. Dermatologic: Denies rash, itching, pruritus. ALLERGY/immunology: Denies sneezes, rashes. Past Medical History Past Medical History: Hyperlipidemia, Hypertension, Myocardial Infarction ([place]), Renal Disease Last Myocardial Infarction Date:: n/a History of Any Multi-Drug Resistant Organisms: None Reported Past Surgical History: Heart Catheterization With Stent Date of Last Stent Placement:: n/a Past Psychological History: No Psychological Hx Reported Smoking Status: Never smoker Past Alcohol Use History: None Reported Past Drug Use History: None Reported Medications and Allergies Home Medications Medication Instructions Recorded Confirmed Type Cephalexin [Keflex] 500 mg PO Q8HR 01/06/21 01/06/21 History Clopidogrel Bisulfate [Plavix] 75 mg PO DAILY 01/06/21 01/06/21 History Docusate [Colace] 100 mg PO BID 01/06/21 01/06/21 History Metoprolol Tartrate 25 mg PO HS 01/06/21 01/06/21 History Multivitamins, Thera [Multivitamin 1 tab PO DAILY 01/06/21 01/06/21 History (formulary)] Oxybutynin ER [Ditropan Xl] 10 mg PO HS 01/06/21 01/06/21 History Pantoprazole Sodium 40 mg PO DAILY 01/06/21 01/06/21 History Tamsulosin HCl [Flomax] 0.4 mg PO HS 01/06/21 01/06/21 History amLODIPine [Norvasc] 5 mg PO DAILY 01/06/21 01/06/21 History Allergies Allergy/AdvReac Type Severity Reaction Status Date / Time No Known Allergies Allergy Verified 01/06/21 15:11 Physical Exam Vitals: Vital Signs Temp Pulse Resp BP Pulse Ox 01/11/21 08:00 98.1 F 62 18 130/78 94 L 01/11/21 02:20 98.1 F 70 17 137/79 95 01/10/21 20:00 82 16 01/10/21 19:03 99.1 F 82 16 136/80 96 01/10/21 14:00 98.5 F 76 17 129/73 97 Intake and Output 01/10/21 01/11/21 01/11/21 22:59 06:59 14:59 Intake Total 600 480 Balance 600 480 Intake: Oral 600 480 Other: Voiding Method Urinal # Voids 3 # Bowel Movements 2 Skin: Atrophic, intact. General: Medium build and comfortable appearance. Head: Normocephalic, atraumatic. Eyes: Symmetric. Pupils equal round. Ears: Symmetric. Hearing within normal limits. Mouth: Clear. Neck: Supple. Carotid without bruit. Cardiac: Regular rate and rhythm. Lungs: Clear anteriorly and posteriorly. Abdomen: Soft active nontender. Extremities: Normal tone. Neurological: Mental status: Alert, cooperative, pleasant. Cranial nerves: Symmetric facial tone and trapezius. Motor: Active movement all 4 limbs. Sensation: Intact throughout. DTRs: Symmetric and equal throughout. Mobility: Patient reports assistance in room including to bath. Results CBC & Chem 7: 01/10/21 05:47 01/10/21 05:47 Labs: Microbiology - Last 24 Hours (Table) 01/06/21 09:34 Blood Culture - Preliminary Blood No Growth after 96 hours 01/06/21 09:51 Blood Culture - Preliminary Blood No Growth after 96 hours Assessment and Plan (1) Calculus of ureter Current Visit: Yes Status: Acute Code(s): N20.1 - CALCULUS OF URETER SNOMED Code(s): 14912400 (2) Hydronephrosis with renal and ureteral calculus obstruction Current Visit: Yes Status: Acute Code(s): N13.2 - HYDRONEPHROSIS WITH RENAL AND URETERAL CALCULOUS OBSTRUCTION SNOMED Code(s): 377542644 (3) Malignant neoplasm of prostate Current Visit: Yes Status: Acute Code(s): C61 - MALIGNANT NEOPLASM OF PROSTATE SNOMED Code(s): 704295276 (4) Metabolic encephalopathy Current Visit: Yes Status: Acute Code(s): G93.41 - METABOLIC ENCEPHALOPATHY SNOMED Code(s): 56493074 Plan: Comments and plan: At this time PT ongoing and documents only supervision. Patient does have some confusion. Awaiting OT evaluation will prescribed speech therapy to determine if patient does have multidisciplinary team need that would be required for inpatient rehab.
--- NOTE | 2021-01-11 14:25 | P.DS ---
Providers Date of admission: 01/06/21 10:17 Expected date of discharge: 01/11/21 Attending physician: Giovanni Pascal Consults: 01/06/21 10:17 Consult Physician Routine Consulting Provider: Naeem Pelayo Consult Reason/Comments: Obstructing renal calculus Do you want consulting provider notified?: Already Contacted 01/10/21 22:08 Consult Physician Routine Consulting Provider: Miguel Dempsey Consult Reason/Comments: IPD to rehab Do you want consulting provider notified?: Yes Primary care physician: Jimmy Lu [facility] Course: Hospital course Per sheet: This is a pleasant 85 years old male with past medical history of coronary artery disease, hypertension and hyperlipidemia presents with altered mental status He is a patient of Dr. Jimmy Turcios , his urologist is Dr. Ayala.. Patient was recently diagnosed with kidney stones and he was started on antibiotic Keflex however lately he's been confused and hallucinating I want to see the patient in the emergency room, Patient is fully awake and oriented and he has good attention span he knows he is in the hospital, [facility] he knew the date with the month and year. He couldn't remember the name of the president. However as per daughter at bedside he's been feeling advancing his shoes and he sees appointment who is not there. He denies any chest pain or dyspnea or coughing. No headache or weakness or numbness. 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 With left-sided hydronephrosis secondary to obstructive renal calculi 5.4 mm. Also hematuria and metabolic encephalopathy secondary to the same. On January 06 patient underwent left ureteral stent insertion. Postprocedure patient was a delirious. Underwent catheter was placed. He was placed on Seroquel. See sleep cycle improved. Oral intake improving. Patient has chronic neck pain for which she's been using heating pad/icepack. Patient will undergo elective cystoscopy with cystolithotripsy left ureter Gregory Coppi with laser lithotripsy down the road by Dr. Lemon Today: Sitting at edge of the bed. Eating. Answering questions appropriately. Some neck pain which is chronic present. Patient does see a chiropractor as outpatient. Discussed with web content & social media manager. Accepted at [facility]. [facility] exemption form filled out. No need for further antibiotics. DC Seroquel. Add melatonin Discussion and discharge planning more than 35 minutes Consultation: Dr. pelayo from urology On examination: VITAL SIGNS: 98.1, 62, 18, 1:30/78, 94% room air GENERAL APPEARANCE: Sitting at the edge of the bed, eating. Comfortable HEENT: Normal external appearance of nose and ear. Oral cavity normal EYES: Pupils equal. Conjunctiva normal. NECK: JVD not raised. Mass not palpable. RESPIRATORY: Respiratory effort normal. Lungs decreased breath sounds. CARDIOVASCULAR: First and second sounds normal. No edema. ABDOMEN: Soft. Liver and spleen not palpable. No tenderness. No mass palpable. Condom catheter PSYCHIATRY: Answering simple questions appropriately. NEUROLOGICAL: No facial asymmetry. Moving all 4 limbs.. INVESTIGATIONS, reviewed in the clinical context: January 10: White count 17 hemoglobin 12.1 sodium 133 potassium 3.9 creatinine 1.01 January 08: Sodium 138 potassium 3.3 creatinine 1.15 Sodium 137 potassium 4.1 BUN 16 creatinine 1.04 Admission labs: White count 7.7 hemoglobin 12.8 platelets 211 BUN 21 8 and 1.33 UA positive for mild leukoesterase, WBC Coronavirus [PCR]: Not detected Chest x-ray film: Mild patchy interstitial changes. CT brain: Age-related atrophic changes. CT abdomen pelvis: Moderate left-sided hydronephrosis secondary to proximal left ureteral calculus measuring 5.4 mm. Multiple prostate calcifications Assessment and plan: -Acute moderate left-sided hydronephrosis secondary to proximal left ureteral calculus measuring 5.4 mm. Left ureter stent done on 01/06. -Acute metabolic encephalopathy and delirium secondary to obstructive uropathy and dehydration: Improved IV fluids. BERNARD Seroquel.. BERNARD Ativan. Add melatonin 3 mg daily at bedtime -Acute kidney injury due to obstructive uropathy and prerenal from decreased oral intake Improving following left ureteral stent and IV fluids. Creatinine improved from 1.33 down to 1.01 -Hyperlipidemia -Mild cognitive impairment -BPH: Flomax 0.4 mg daily at bedtime -Essential hypertension: unControlled Norvasc 5 mg daily. metoprolol to 25 mg twice a day -CAD with stent Plavix in 5 mg daily. Metoprolol 25 mg daily at bedtime Norvasc 5 mg daily -Acute medical debility. IPD rehab Disposition: [facility] Plan - Discharge Summary Discharge Rx Participant: Yes New Discharge Prescriptions: New QUEtiapine [SEROquel] 12.5 mg PO HS tab Acetaminophen Tab [Tylenol] 650 mg PO Q6HR PRN tab PRN Reason: Mild Pain Or Fever > 100.5 Sennosides-Docusate Sodium [Senokot-S] 1 tab PO DAILY #1 tablet Continue amLODIPine [Norvasc] 5 mg PO DAILY Tamsulosin HCl [Flomax] 0.4 mg PO HS Clopidogrel Bisulfate [Plavix] 75 mg PO DAILY Multivitamins, Thera [Multivitamin (formulary)] 1 tab PO DAILY Oxybutynin ER [Ditropan Xl] 10 mg PO HS Pantoprazole Sodium 40 mg PO DAILY Changed Metoprolol Tartrate 25 mg PO BID #0 Discontinued Cephalexin [Keflex] 500 mg PO Q8HR Docusate [Colace] 100 mg PO BID Discharge Medication List Clopidogrel Bisulfate [Plavix] 75 mg PO DAILY 01/06/21 [History] Multivitamins, Thera [Multivitamin (formulary)] 1 tab PO DAILY 01/06/21 [History] Oxybutynin ER [Ditropan Xl] 10 mg PO HS 01/06/21 [History] Pantoprazole Sodium 40 mg PO DAILY 01/06/21 [History] Tamsulosin HCl [Flomax] 0.4 mg PO HS 01/06/21 [History] amLODIPine [Norvasc] 5 mg PO DAILY 01/06/21 [History] Acetaminophen Tab [Tylenol] 650 mg PO Q6HR PRN tab 01/11/21 [Rx] Metoprolol Tartrate 25 mg PO BID #0 01/11/21 [Rx] QUEtiapine [SEROquel] 12.5 mg PO HS tab 01/11/21 [Rx] Sennosides-Docusate Sodium [Senokot-S] 1 tab PO DAILY #1 tablet 01/11/21 [Rx] Follow up Appointment(s)/Referral(s): Naeem Pelayo MD [STAFF PHYSICIAN] - 3 Weeks Jimmy Lu DO [Primary Care Provider] - 1-2 days
[2021-01-11 15:13] VITALS: BP 166/76; PULSE 69
== END 2021-01-11 15:30 | DRG 659 ==
LOC: EC 06:51 → 4SSUR 10:17
PROVIDERS: ADMIT Hospitalist; ATTEND Hospitalist
PROC: 0T778DZ Dilation of Left Ureter with Intraluminal Device, Via Natural or Artificial Opening Endoscopic (ICD-10-PCS; principal; 2021-01-06 07:30)
DX: N17.9 Acute kidney failure, unspecified (principal); G93.41 Metabolic encephalopathy; F05 Delirium due to known physiological condition; N13.2 Hydronephrosis with renal and ureteral calculous obstruction; M19.012 Primary osteoarthritis, left shoulder; C61 Malignant neoplasm of prostate; E78.5 Hyperlipidemia, unspecified; E86.0 Dehydration; F41.9 Anxiety disorder, unspecified; G31.84 Mild cognitive impairment of uncertain or unknown etiology; G47.00 Insomnia, unspecified; G89.29 Other chronic pain; M54.2 Cervicalgia; Z20.822 Contact with and (suspected) exposure to COVID-19; R31.9 Hematuria, unspecified; I10 Essential (primary) hypertension; I25.10 Atherosclerotic heart disease of native coronary artery without angina pectoris; R53.81 Other malaise; I25.2 Old myocardial infarction; N21.0 Calculus in bladder; N40.0 Benign prostatic hyperplasia without lower urinary tract symptoms; N40.1 Benign prostatic hyperplasia with lower urinary tract symptoms; N39.498 Other specified urinary incontinence; Z79.02 Long term (current) use of antithrombotics/antiplatelets; Z79.82 Long term (current) use of aspirin; Z79.899 Other long term (current) drug therapy; Z85.46 Personal history of malignant neoplasm of prostate; Z95.5 Presence of coronary angioplasty implant and graft
CPT/HCPCS: 36415; 70450; 71046; 74176; 80048; 80053; 81001; 83605; 83735; 84145; 85025; 85610; 85730; 87040; 87086; 87635; 93005; 96374; 99285

== ENCOUNTER 2021-01-27 09:20 | Day surgery (SDC) | payer MEDICARE, BC ==
[2021-01-25 14:14] VITALS: BMI 23.3
--- NOTE | 2021-01-26 18:18 | P.GSHP ---
History of Present Illness H&P Date: 01/26/21 85 yo male recently in the hospital where Florencia Pelayo placed a stent for an obstructing left ureteral stone with infection. He also has bladder stones. He comes for a cysto lithotripsy and ureteroscopy with laser lithotripsy left. - Constitutional Constitutional: Denies chills, Denies fever - EENT Eyes: denies blurred vision, denies pain Ears, nose, mouth and throat: Denies headache, Denies sore throat - Cardiovascular Cardiovascular: Denies chest pain, Denies shortness of breath - Respiratory Respiratory: Denies cough, Denies 7 - Gastrointestinal Gastrointestinal: Denies abdominal pain, Denies diarrhea, Denies nausea, Denies vomiting - Genitourinary (Female) Genitourinary: Denies dysuria, Denies hematuria - Genitourinary (Male) Genitourinary: Denies dysuria, Denies hematuria - Musculoskeletal Musculoskeletal: Denies myalgias - Integumentary Integumentary: Denies pruritus, Denies rash - Neurological Neurological: Denies numbness, Denies weakness - Psychiatric Psychiatric: Denies anxiety, Denies depression - Endocrine Endocrine: Denies fatigue, Denies weight change Past Medical History Past Medical History: Hyperlipidemia, Hypertension, Myocardial Infarction ([place]), Renal Disease Last Myocardial Infarction Date:: unk History of Any Multi-Drug Resistant Organisms: None Reported Past Surgical History: Heart Catheterization With Stent Past Anesthesia/Blood Transfusion Reactions: No Reported Reaction Date of Last Stent Placement:: unk Past Psychological History: No Psychological Hx Reported Smoking Status: Never smoker Past Alcohol Use History: None Reported Past Drug Use History: None Reported - Past Family History Mother Family Medical History: No Reported History Additional Family Medical History / Comment(s): daughter unsure of family hx Medications and Allergies Home Medications Medication Instructions Recorded Confirmed Type Clopidogrel Bisulfate [Plavix] 75 mg PO DAILY 01/06/21 01/25/21 History Pantoprazole Sodium 40 mg PO DAILY 01/06/21 01/25/21 History Tamsulosin HCl [Flomax] 0.4 mg PO HS 01/06/21 01/25/21 History amLODIPine [Norvasc] 5 mg PO DAILY 01/06/21 01/25/21 History Metoprolol Tartrate 25 mg PO BID #0 01/11/21 01/25/21 Rx Fenofibrate 160 mg PO DAILY 01/25/21 01/25/21 History Lovastatin [Mevacor] 20 mg PO DAILY 01/25/21 01/25/21 History Oxybutynin Chloride [Oxybutynin 10 mg PO DAILY 01/25/21 01/25/21 History Chloride ER] Allergies Allergy/AdvReac Type Severity Reaction Status Date / Time No Known Allergies Allergy Verified 01/25/21 14:05 Surgical - Exam - General well developed, well nourished, no distress - Eyes normal ocular movement, no icteric - ENT no hearing loss, no congestion - Neck no masses, trachea midline - Respiratory normal respiratory effort, clear to auscultation - Abdomen Abdomen: soft, non tender, no guarding, no rigid, no rebound - Genitourinary normal penis with no external lesions, testicles present - Integumentary no rash, no abnormal pigmentation - Neurologic no disoriented, no combative - Psychiatric oriented to time, oriented to person, oriented to place, speech is normal, memory intact Results - Imaging CT scan - abdomen: report reviewed, image reviewed CT scan - pelvis: report reviewed, image reviewed Assessment and Plan Assessment: Impression: Left ureteral stone with bladder stones Plan Cysto lithotripsy, left ureteroscopy with laser lithostripsy.
[~2021-01-27 09:20] MED LIST: DEXAMETHASONE SOD PHOSPHATE 4 MG/ML 1 ML VIAL IV ONE; GENTAMICIN 100 MG in SODIUM CHLORIDE 0.9% 100 ML IVPB PRN; HYDROmorphone 0.5 MG/0.5 ML SYRINGE IVP PRN; LACTATED RINGERS 1,000 ML IV SCH; LIDOCAINE 1% (10MG/ML) FOR IV START INTRADERMA PRN; ONDANSETRON 4 MG/2 ML VIAL IVP ONE
--- NOTE | 2021-01-27 10:06 | XR ---
EXAMINATION TYPE: XR KUB DATE OF EXAM: 01/27/2021 COMPARISON: NONE HISTORY: Left ureteral stone TECHNIQUE: One view abdominal series FINDINGS: The osseous structures are intact. The bowel gas pattern is nonspecific. Left-sided ureteral stent s een and there is a proximal left ureteral calculus measuring a diameter 3.5 mm. Nonspecific calcifica tions in the pelvis. Curvature of the spine with degenerative changes. Arthropathy of the hips. Surgi xiang clips gallbladder fossa. IMPRESSION: 1. Left ureteral stent with proximal left ureteral 3.5 mm calculus.
[2021-01-27] MEDS ORDERED: ONDANSETRON 4 MG/2 ML VIAL ONE (10:28)
[2021-01-27] MEDS ORDERED: PROPOFOL 10 MG/ML 20 ML VIAL IV ONE (11:59)
[2021-01-27] MEDS ORDERED: .fentaNYL (PF) 50 MCG/ML 2 ML AMP ONE (11:59)
[2021-01-27] MEDS ORDERED: LIDOCAINE 1% INJ 10MG/ML (20 ML MDV) ONE (11:59)
[2021-01-27] MEDS ORDERED: SUCCINYLCHOLINE CHLORIDE 100 MG/5 ML SYR IV ONE (11:59)
[2021-01-27] MEDS: AMPICILLIN 1,000 MG in SODIUM CHLORIDE 0.9% 50 ML IVPB PRN ×2 (12:23→12:40)
--- NOTE | 2021-01-27 12:54 | P.OP ---
Date of Procedure: 01/27/21 Preoperative Diagnosis: Bladder stone, left ureteral Postoperative Diagnosis: Same Procedure(s) Performed: cystolithotripsy (less than 2.5 cm) left ureteroscopy with laser lithotripsy and stone basketing Anesthesia: EVELIA Surgeon: Costa Pitts Estimated Blood Loss (ml): 0 Pathology: other (Stone) Condition: stable Disposition: PACU Indications for Procedure: The patient is 85. Proximally 2 weeks ago he had a stent placed for an obstructing infected left ureteral stone. He was found to have bladder stones also. He comes for cystoscopy lithotripsy, left ureteroscopy and laser lithotripsy. Description of Procedure: Patient is brought to the operating suite. He is given a general endotracheal anesthesia. He's placed in lithotomy position with a sterile prep and drape. Cystoscopy Foroblique lens and 21-Latvian sheath is introduced in the urethra. The anterior urethra is normal. The prostatic urethra she trilobar obstruction. The bladder wall shows moderate trabeculation with a stent into stones 1 and 1.5 cm another about 8 millimeters. With the 375 probe the bladder stones are broken and flushed out of the bladder I then pull the double-J catheter to the urethral meatus and then through the ureteral catheter I passed an 035 wire up into the renal pelvis. Alongside the wire I passed a 7-Latvian semirigid ureteroscope up to the stone which is just at the iliac vessels. With the same and 75 laser probe the stone is brought in into tiny fragments. With the stone basket the larger fragment is grasped and removed and sent to pathology. I then pass the ureteroscope up to this there are no remaining stones or do a pullout ureteroscopy and there are no remaining fragments in the left ureter. The bladder is drained and the patient's awakened and returned recovery room good condition he tolerated procedure well be discharged home upon recovery.
[2021-01-27 13:06] VITALS: TEMP 97
--- NOTE | 2021-01-27 14:33 | FL ---
Fluoroscopy HISTORY: Left ureteral stone 5 seconds fluoroscopy time supplied to the referring clinician. 2 intraoperative C-arm images docume nt the procedure. See dictated report from urology.
[2021-01-27 15:01] VITALS: BP 171/64; PULSE 68; RESP 16
== END 2021-01-27 14:55 | disposition home or self-care (01) ==
LOC: OR 09:20
PROVIDERS: ATTEND Urology
DX: N21.0 Calculus in bladder (principal); E78.5 Hyperlipidemia, unspecified; I10 Essential (primary) hypertension; I25.2 Old myocardial infarction; K21.9 Gastro-esophageal reflux disease without esophagitis; Z95.5 Presence of coronary angioplasty implant and graft; Z79.899 Other long term (current) drug therapy; Z79.02 Long term (current) use of antithrombotics/antiplatelets
CPT/HCPCS: 82365; 74420; 74018; 52317; C1769; J1100; J2405; J2001; J3010; J1580; J0290; J0330; J2704; J1170